=== PATIENT | female | born 1945 | race Hispanic/Latino ===

== ENCOUNTER → 2017-11-12 | Outpatient (CLI) | payer MEDICARE | END | disposition home or self-care (01) | LOC: SHCH 09:23 | PROVIDERS: ATTEND Internal Medicine Cardiovascular Disease | DX: I73.9 Peripheral vascular disease, unspecified (principal) | CPT/HCPCS: 93925 ==

== ENCOUNTER → 2018-11-18 | Outpatient (CLI) | payer MEDICARE | END | disposition home or self-care (01) | LOC: SHCH 10:46 | PROVIDERS: ATTEND Internal Medicine Cardiovascular Disease | DX: I87.2 Venous insufficiency (chronic) (peripheral) (principal); I73.9 Peripheral vascular disease, unspecified | CPT/HCPCS: 93925; 93970 ==

== ENCOUNTER → 2019-05-30 | Outpatient (CLI) | payer MEDICARE ==
[~2019-05-30] VITALS: Ht 142.2 cm; Wt 59.0 kg
[~2019-05-30] MED LIST: REGADENOSON 0.4 MG/5 ML PF SYG IVP SCH
== END | disposition home or self-care (01) ==
LOC: SHCH 08:51
PROVIDERS: ATTEND Internal Medicine Cardiovascular Disease
DX: I25.709 Atherosclerosis of coronary artery bypass graft(s), unspecified, with unspecified angina pectoris (principal); R07.9 Chest pain, unspecified
CPT/HCPCS: 78452; 93017; 96374; A9500 ×2; J2785

== ENCOUNTER → 2019-06-14 | Outpatient (CLI) | payer MEDICARE | END | disposition home or self-care (01) | LOC: SHCH 11:21 | PROVIDERS: ATTEND Internal Medicine Cardiovascular Disease | DX: I65.23 Occlusion and stenosis of bilateral carotid arteries (principal) | CPT/HCPCS: 93880 ==

== ENCOUNTER 2020-10-20 13:48 | Inpatient (IN) | payer MEDICARE ==
[~2020-10-20] VITALS: Ht 142.2 cm; Wt 51.3 kg
[2020-10-20 14:41] LABS: BASOPHILS % (AUTO) 0.5 % (0.0-5.0); HEMATOCRIT 42.2 % (36-48); LYMPHOCYTES % (AUTO) 21.3 % (21.0-51.0); MEAN CORPUSCULAR HEMOGLOBIN 29.5 pg (27.0-33.0); MEAN CORPUSCULAR HGB CONC 33.2 g/dL (32.0-36.0); MEAN CORPUSCULAR VOLUME 88.8 fL (79-99); MONOCYTES % (AUTO) 8.2 % (3.0-13.0); NEUTROPHILS % (AUTO) 68.9 % (40.0-77.0); PLATELET COUNT (AUTO) 193 K/uL (130-400); RED BLOOD CELL COUNT(AUTO) 4.75 MIL/uL (4.00-5.50); RED CELL DISTRIBUTION WIDTH 12.7 % (11.0-15.5); WHITE BLOOD COUNT (AUTO) 7.8 K/uL (4.8-10.8)
[2020-10-20 14:56] LABS: INR 1.03 (0.85-1.15); PROTHROMBIN TIME 11.2 SEC (9.6-11.6)
[2020-10-20 14:58] LABS: PARTIAL THROMBOPLASTIN TIME 26.8 SEC (26.3-35.5)
[2020-10-20 15:04] LABS: CREATININE 1.1 mg/dL (0.5-1.5); POTASSIUM 4.1 mmol/L (3.5-5.1)
[2020-10-20 15:08] LABS: ALBUMIN 4.3 g/dL (3.5-5.0); BILIRUBIN,TOTAL 0.7 mg/dL (0.2-1.0)
[2020-10-20] MEDS ORDERED: ACETAMINOPHEN 325 MG TAB ONE (15:19)
[2020-10-20] MEDS ORDERED: DIAZEPAM 2 MG TAB ONE (16:50)
[2020-10-20 18:45] LABS: APPEARANCE,URINE Clear (CLEAR); BILIRUBIN,URINE Negative (NEGATIVE); COLOR,URINE Yellow (YELLOW); GLUCOSE, URINE (UA) Negative (NEGATIVE); KETONES,URINE 15 mg/dL (NEGATIVE); LEUKOCYTE ESTERASE ,URINE Trace (NEGATIVE); NITRATE,URINE Positive (NEGATIVE); OCCULT BLOOD,URINE Negative (NEGATIVE); PROTEIN,URINE Negative (NEGATIVE); UROBILINOGEN,URINE 0.2 mg/dL (0.2-1.0)
[2020-10-20 19:01] LABS: BACTERIA,URINE Few /HPF (None Seen); RBC,URINE 0-1 /HPF (0-1)
[2020-10-20 19:02] LABS: SQUAMOUS EPITHELIAL CELL,UR Few /HPF (0-2)
[2020-10-20] MEDS ORDERED: ACETAMINOPHEN 325 MG TAB PO PRN ×2 (19:15)
[2020-10-20] MEDS ORDERED: ONDANSETRON 4MG INJ IV PRN (19:15)
[2020-10-20 20:12] LABS: HEMOGLOBIN A1C 7.4 % (4.0-6.0)
[2020-10-20] MEDS: INSULIN HUMULIN R 100 UNIT/ML 3ML SQ SCH (21:00)
[2020-10-20 21:21] LABS: CRP QUANTITATIVE < 2.00 mg/L (0.00-9.0)
[2020-10-20 21:45] VITALS: BP 158/67
[2020-10-20] MEDS: FAMOTIDINE 20MG TAB PO SCH (22:44)
[2020-10-20] MEDS: METOCLOPRAMIDE 5 MG TABLET PO SCH (22:46)
[2020-10-20] MEDS: ATORVASTATIN 20 MG TABLET PO SCH (22:46)
[2020-10-20] MEDS: METOPROLOL TARTRATE 50 MG TAB PO SCH (22:47)
[2020-10-20] MEDS: GABAPENTIN 100 MG CAPSULE PO SCH (22:47)
[2020-10-20] MEDS: CYCLOBENZAPRINE HCL 10 MG TABLET PO SCH (22:49)
[2020-10-20] MEDS: NAPROXEN 500 MG TABLET PO SCH (22:50)
[2020-10-20] MEDS: LIDOCAINE 5% TOPICAL PATCH TP SCH (22:58)
[2020-10-21 00:04] VITALS: BP 158/68
[2020-10-21] MEDS ORDERED: METO5 PO (02:31)
[2020-10-21] MEDS ORDERED: VITA400T9 PO (02:49)
[2020-10-21] MEDS ORDERED: CILO100T PO (02:49)
[2020-10-21] MEDS ORDERED: FLUO10TA3 PO (02:49)
[2020-10-21] MEDS ORDERED: NITR0.4T50 SL (02:49)
[2020-10-21] MEDS ORDERED: ASCO500C18 PO (02:49)
[2020-10-21] MEDS ORDERED: ISOS30TA92 PO (02:49)
[2020-10-21] MEDS ORDERED: CYAN250010 PO (02:49)
[2020-10-21] MEDS ORDERED: LOSA50TA2 PO (02:49)
[2020-10-21] MEDS ORDERED: METO50TA18 PO (02:49)
[2020-10-21] MEDS ORDERED: GABA-529 PO (02:49)
[2020-10-21 03:50] VITALS: BP 143/74
[2020-10-21] MEDS: INSULIN HUMULIN R 100 UNIT/ML 3ML SQ SCH ×4 (06:02→22:09)
[2020-10-21] MEDS: METOCLOPRAMIDE 5 MG TABLET PO SCH ×4 (06:02→21:56)
[2020-10-21 07:00] VITALS: BP 136/53
[2020-10-21] MEDS: GABAPENTIN 100 MG CAPSULE PO SCH ×3 (10:08→21:58)
[2020-10-21] MEDS: FLUOXETINE HCL 10 MG CAPSULE PO SCH (10:08)
[2020-10-21] MEDS: ISOSORBIDE MONO 30MG SR TAB PO SCH (10:08)
[2020-10-21] MEDS: METOPROLOL TARTRATE 50 MG TAB PO SCH ×2 (10:08→21:58)
[2020-10-21] MEDS: LIDOCAINE 5% TOPICAL PATCH TP SCH (10:08)
[2020-10-21] MEDS: NAPROXEN 500 MG TABLET PO SCH ×2 (10:08→21:57)
[2020-10-21] MEDS: FAMOTIDINE 20MG TAB PO SCH ×2 (10:08→21:56)
[2020-10-21] MEDS: LOSARTAN 50 MG TABLET PO SCH (10:08)
[2020-10-21] MEDS: CYCLOBENZAPRINE HCL 10 MG TABLET PO SCH ×3 (10:08→21:57)
[2020-10-21] MEDS ORDERED: GADODIAMIDE 10 MMOL/20 ML VIAL IV ONE (10:30)
[2020-10-21 11:00] VITALS: BP 119/53
[2020-10-21 15:00] VITALS: BP 104/47
[2020-10-21] MEDS: CEFTRIAXONE 1G VIAL IVP SCH (15:41)
[2020-10-21 20:00] VITALS: BP 155/67
[2020-10-21] MEDS: ATORVASTATIN 20 MG TABLET PO SCH (21:58)
[2020-10-22] VITALS (7 sets, daily range): BP systolic 101–139; BP diastolic 48–66
[2020-10-22] MEDS: CEFTRIAXONE 1G VIAL IVP SCH ×2 (04:10→14:28)
[2020-10-22 05:11] LABS: HEMATOCRIT 34.8 % (36-48); MEAN CORPUSCULAR HEMOGLOBIN 29.4 pg (27.0-33.0); MEAN CORPUSCULAR HGB CONC 32.5 g/dL (32.0-36.0); MEAN CORPUSCULAR VOLUME 90.4 fL (79-99); RED BLOOD CELL COUNT(AUTO) 3.85 MIL/uL (4.00-5.50)
[2020-10-22 05:50] LABS: ALBUMIN 3.3 g/dL (3.5-5.0); BILIRUBIN,TOTAL 0.9 mg/dL (0.2-1.0); CREATININE 1.6 mg/dL (0.5-1.5); POTASSIUM 4.2 mmol/L (3.5-5.1); TOTAL PROTEIN, SERUM 6.5 g/dL (6.0-8.3)
[2020-10-22] MEDS: METOCLOPRAMIDE 5 MG TABLET PO SCH ×4 (06:46→22:41)
[2020-10-22] MEDS: INSULIN HUMULIN R 100 UNIT/ML 3ML SQ SCH ×4 (06:47→21:00)
[2020-10-22] MEDS: METOPROLOL TARTRATE 50 MG TAB PO SCH ×3 (09:00→22:44)
[2020-10-22] MEDS: NAPROXEN 500 MG TABLET PO SCH ×2 (10:14→22:42)
[2020-10-22] MEDS: ISOSORBIDE MONO 30MG SR TAB PO SCH (10:14)
[2020-10-22] MEDS: LOSARTAN 50 MG TABLET PO SCH (10:15)
[2020-10-22] MEDS: FLUOXETINE HCL 10 MG CAPSULE PO SCH (10:15)
[2020-10-22] MEDS: GABAPENTIN 100 MG CAPSULE PO SCH ×4 (10:15→22:40)
[2020-10-22] MEDS: CYCLOBENZAPRINE HCL 10 MG TABLET PO SCH ×3 (10:15→22:40)
[2020-10-22] MEDS: FAMOTIDINE 20MG TAB PO SCH ×2 (10:15→22:42)
[2020-10-22] MEDS: LIDOCAINE 5% TOPICAL PATCH TP SCH (10:19)
[2020-10-22] MEDS: ATORVASTATIN 20 MG TABLET PO SCH (22:41)
[2020-10-23] MEDS: CEFTRIAXONE 1G VIAL IVP SCH ×2 (04:05→16:05)
[2020-10-23 04:08] LABS: HEMOGLOBIN A1C 7.4 % (4.0-6.0)
[2020-10-23 04:20] VITALS: BP 138/58
[2020-10-23] MEDS: LOSARTAN 50 MG TABLET PO SCH (08:53)
[2020-10-23] MEDS: ISOSORBIDE MONO 30MG SR TAB PO SCH (08:53)
[2020-10-23] MEDS: METOCLOPRAMIDE 5 MG TABLET PO SCH ×4 (08:53→21:41)
[2020-10-23] MEDS: NAPROXEN 500 MG TABLET PO SCH ×2 (08:56→21:48)
[2020-10-23] MEDS: FLUOXETINE HCL 10 MG CAPSULE PO SCH (08:56)
[2020-10-23] MEDS: GABAPENTIN 100 MG CAPSULE PO SCH ×3 (08:56→21:40)
[2020-10-23] MEDS: FAMOTIDINE 20MG TAB PO SCH ×2 (08:56→21:38)
[2020-10-23] MEDS: LIDOCAINE 5% TOPICAL PATCH TP SCH (08:57)
[2020-10-23] MEDS: CYCLOBENZAPRINE HCL 10 MG TABLET PO SCH ×3 (08:57→21:40)
[2020-10-23 09:09] VITALS: BP 154/65
[2020-10-23] MEDS: INSULIN HUMULIN R 100 UNIT/ML 3ML SQ SCH ×3 (11:30→21:35)
[2020-10-23 12:27] VITALS: BP 140/63
[2020-10-23 16:00] VITALS: BP 113/61
[2020-10-23 20:30] VITALS: BP 141/45
[2020-10-23] MEDS ORDERED: METOPROLOL TARTRATE 50 MG TAB PO SCH (21:00)
[2020-10-23] MEDS: CILOSTAZOL 100 MG TAB PO SCH (21:00)
[2020-10-23] MEDS: ATORVASTATIN 20 MG TABLET PO SCH (21:39)
[2020-10-23] MEDS: METOPROLOL TARTRATE 50 MG TAB PO SCH (21:43)
[2020-10-23 23:40] VITALS: BP 146/62
[2020-10-24] VITALS (9 sets, daily range): BP systolic 107–222; BP diastolic 57–94
[2020-10-24] MEDS: CEFTRIAXONE 1G VIAL IVP SCH ×2 (03:56→16:09)
[2020-10-24] MEDS ORDERED: GLUCAGON 1MG KIT 1 MG ML IM PRN (05:30)
[2020-10-24] MEDS ORDERED: DEXTROSE 50%-WATER 50 ML DISP.SYRIN IV PRN (05:30)
[2020-10-24] MEDS ORDERED: LABETALOL 20MG SYG IV ONE (06:56)
[2020-10-24] MEDS: LABETALOL 20MG SYG IV SCH (07:22)
[2020-10-24] MEDS: INSULIN HUMULIN R 100 UNIT/ML 3ML SQ SCH ×4 (07:30→23:08)
[2020-10-24] MEDS: CILOSTAZOL 100 MG TAB PO SCH ×2 (08:06→23:11)
[2020-10-24] MEDS: LIDOCAINE 5% TOPICAL PATCH TP SCH (08:06)
[2020-10-24] MEDS: METOPROLOL TARTRATE 50 MG TAB PO SCH ×2 (08:06→23:10)
[2020-10-24] MEDS: ASPIRIN 81MG CHEW TAB PO SCH (08:06)
[2020-10-24] MEDS: FLUOXETINE HCL 10 MG CAPSULE PO SCH ×2 (08:07→08:13)
[2020-10-24] MEDS: LOSARTAN 50 MG TABLET PO SCH (08:07)
[2020-10-24] MEDS: CYCLOBENZAPRINE HCL 10 MG TABLET PO SCH (08:07)
[2020-10-24] MEDS: FAMOTIDINE 20MG TAB PO SCH ×2 (08:07→21:00)
[2020-10-24] MEDS: ASCORBIC ACID 500 MG TAB PO SCH ×2 (08:07→23:10)
[2020-10-24] MEDS: METOCLOPRAMIDE 5 MG TABLET PO SCH ×2 (08:07→11:30)
[2020-10-24] MEDS: ISOSORBIDE MONO 30MG SR TAB PO SCH (08:07)
[2020-10-24] MEDS: GABAPENTIN 100 MG CAPSULE PO SCH ×2 (08:08→23:03)
[2020-10-24] MEDS: CYANOCOBALAMIN (VITAMIN B-12) 1,000 MCG TABLET PO SCH (08:08)
[2020-10-24] MEDS: NAPROXEN 500 MG TABLET PO SCH ×2 (09:00→21:00)
[2020-10-24] MEDS ORDERED: ISOSORBIDE MONO 30MG SR TAB PO SCH (09:00)
[2020-10-24] MEDS ORDERED: LOSARTAN 50 MG TABLET PO SCH (09:00)
[2020-10-24] MEDS ORDERED: HALOPERIDOL INJ 5 MG/ML VIAL ONE (10:26)
[2020-10-24] MEDS ORDERED: HALOPERIDOL INJ 5 MG/ML VIAL IM SCH (10:45)
[2020-10-24] MEDS ORDERED: LORAZEPAM 2 MG/ML 1 ML VIAL ONE (11:21)
[2020-10-24] MEDS ORDERED: CYCLOBENZAPRINE HCL 10 MG TABLET PO PRN (12:15)
[2020-10-24] MEDS: OLANZAPINE ODT 5 MG TAB SL SCH (23:03)
[2020-10-24] MEDS: ATORVASTATIN 20 MG TABLET PO SCH (23:10)
[2020-10-25] MEDS: CEFTRIAXONE 1G VIAL IVP SCH ×2 (03:09→15:59)
[2020-10-25 04:00] VITALS: BP 134/60
[2020-10-25 04:43] LABS: HEMATOCRIT 34.7 % (36-48); MEAN CORPUSCULAR HEMOGLOBIN 29.3 pg (27.0-33.0); MEAN CORPUSCULAR HGB CONC 32.3 g/dL (32.0-36.0); MEAN CORPUSCULAR VOLUME 90.8 fL (79-99); RED BLOOD CELL COUNT(AUTO) 3.82 MIL/uL (4.00-5.50); RED CELL DISTRIBUTION WIDTH 12.9 % (11.0-15.5); WHITE BLOOD COUNT (AUTO) 6.7 K/uL (4.8-10.8)
[2020-10-25 04:58] LABS: ALBUMIN 3.4 g/dL (3.5-5.0); BILIRUBIN,TOTAL 0.3 mg/dL (0.2-1.0); CREATININE 1.5 mg/dL (0.5-1.5); POTASSIUM 4.5 mmol/L (3.5-5.1); TOTAL PROTEIN, SERUM 6.9 g/dL (6.0-8.3)
[2020-10-25 05:08] LABS: INR 1.03 (0.85-1.15); PROTHROMBIN TIME 11.2 SEC (9.6-11.6)
[2020-10-25 05:09] LABS: PARTIAL THROMBOPLASTIN TIME 24.2 SEC (26.3-35.5)
[2020-10-25] MEDS: INSULIN HUMULIN R 100 UNIT/ML 3ML SQ SCH ×4 (06:28→20:49)
[2020-10-25] MEDS: LABETALOL 20MG SYG IV SCH ×2 (06:30→20:50)
[2020-10-25] MEDS: FLUOXETINE HCL 10 MG CAPSULE PO SCH ×2 (09:00→09:08)
[2020-10-25] MEDS: CILOSTAZOL 100 MG TAB PO SCH ×2 (09:07→20:44)
[2020-10-25] MEDS: CYANOCOBALAMIN (VITAMIN B-12) 1,000 MCG TABLET PO SCH (09:07)
[2020-10-25] MEDS: ISOSORBIDE MONO 30MG SR TAB PO SCH (09:07)
[2020-10-25] MEDS: LOSARTAN 50 MG TABLET PO SCH (09:07)
[2020-10-25] MEDS: FAMOTIDINE 20MG TAB PO SCH ×2 (09:07→20:43)
[2020-10-25] MEDS: METOPROLOL TARTRATE 50 MG TAB PO SCH ×2 (09:07→20:43)
[2020-10-25] MEDS: NAPROXEN 500 MG TABLET PO SCH ×2 (09:07→20:43)
[2020-10-25] MEDS: ASPIRIN 81MG CHEW TAB PO SCH (09:07)
[2020-10-25] MEDS: ASCORBIC ACID 500 MG TAB PO SCH ×2 (09:08→20:43)
[2020-10-25] MEDS: LIDOCAINE 5% TOPICAL PATCH TP SCH (09:08)
[2020-10-25] MEDS: GABAPENTIN 100 MG CAPSULE PO SCH ×2 (09:08→20:44)
[2020-10-25 09:10] VITALS: BP 143/73
[2020-10-25 16:23] VITALS: BP 126/57
[2020-10-25 20:00] VITALS: BP 148/52
[2020-10-25] MEDS: ATORVASTATIN 20 MG TABLET PO SCH (20:43)
[2020-10-26] VITALS: BP 163/83
[2020-10-26] MEDS: CEFTRIAXONE 1G VIAL IVP SCH ×2 (03:51→14:57)
[2020-10-26 04:31] VITALS: BP 151/69
[2020-10-26] MEDS: INSULIN HUMULIN R 100 UNIT/ML 3ML SQ SCH ×4 (06:28→20:22)
[2020-10-26] MEDS: LOSARTAN 50 MG TABLET PO SCH (08:27)
[2020-10-26] MEDS: METOPROLOL TARTRATE 50 MG TAB PO SCH ×2 (08:27→20:20)
[2020-10-26] MEDS: LIDOCAINE 5% TOPICAL PATCH TP SCH (08:27)
[2020-10-26] MEDS: ISOSORBIDE MONO 30MG SR TAB PO SCH (08:28)
[2020-10-26] MEDS: CILOSTAZOL 100 MG TAB PO SCH ×2 (09:00→20:19)
[2020-10-26] MEDS: CYANOCOBALAMIN (VITAMIN B-12) 1,000 MCG TABLET PO SCH (09:00)
[2020-10-26] MEDS: GABAPENTIN 100 MG CAPSULE PO SCH ×2 (09:00→20:20)
[2020-10-26] MEDS: ASPIRIN 81MG CHEW TAB PO SCH (09:00)
[2020-10-26] MEDS: ASCORBIC ACID 500 MG TAB PO SCH ×2 (09:00→20:19)
[2020-10-26] MEDS: FAMOTIDINE 20MG TAB PO SCH ×2 (09:00→20:20)
[2020-10-26] MEDS: FLUOXETINE HCL 10 MG CAPSULE PO SCH ×2 (09:00)
[2020-10-26] MEDS: NAPROXEN 500 MG TABLET PO SCH ×2 (09:00→20:20)
[2020-10-26 19:00] VITALS: BP 144/72
[2020-10-26] MEDS: OLANZAPINE ODT 5 MG TAB SL SCH (20:20)
[2020-10-26] MEDS: ATORVASTATIN 20 MG TABLET PO SCH (20:20)
[2020-10-26] MEDS: LABETALOL 20MG SYG IV SCH (21:47)
[2020-10-26] MEDS ORDERED: LORAZEPAM 2 MG/ML 1 ML VIAL IVP ONE (22:45)
[2020-10-26] MEDS ORDERED: LORAZEPAM 2 MG/ML 1 ML VIAL ONE (22:48)
[2020-10-27] VITALS (25 sets, daily range): BP systolic 87–157; BP diastolic 38–77
[2020-10-27] MEDS: CEFTRIAXONE 1G VIAL IVP SCH ×2 (03:37→15:35)
[2020-10-27] MEDS: INSULIN HUMULIN R 100 UNIT/ML 3ML SQ SCH ×4 (07:30→20:38)
[2020-10-27] MEDS: ISOSORBIDE MONO 30MG SR TAB PO SCH (08:43)
[2020-10-27] MEDS: LOSARTAN 50 MG TABLET PO SCH (08:43)
[2020-10-27] MEDS: ASPIRIN 81MG CHEW TAB PO SCH (08:43)
[2020-10-27] MEDS: NAPROXEN 500 MG TABLET PO SCH ×2 (08:44→20:22)
[2020-10-27] MEDS: GABAPENTIN 100 MG CAPSULE PO SCH ×2 (08:44→20:22)
[2020-10-27] MEDS: CILOSTAZOL 100 MG TAB PO SCH ×2 (08:44→20:21)
[2020-10-27] MEDS: FAMOTIDINE 20MG TAB PO SCH ×2 (08:44→20:21)
[2020-10-27] MEDS: FLUOXETINE HCL 10 MG CAPSULE PO SCH ×2 (08:45)
[2020-10-27] MEDS: ASCORBIC ACID 500 MG TAB PO SCH ×2 (08:45→20:22)
[2020-10-27] MEDS: CYANOCOBALAMIN (VITAMIN B-12) 1,000 MCG TABLET PO SCH (08:45)
[2020-10-27] MEDS: LIDOCAINE 5% TOPICAL PATCH TP SCH (09:00)
[2020-10-27] MEDS: METOPROLOL TARTRATE 50 MG TAB PO SCH ×2 (09:00→20:22)
[2020-10-27] MEDS ORDERED: LIDOCAINE PF 100MG/5ML (2%) SYRINGE 5ML ONE (12:09)
[2020-10-27] MEDS ORDERED: ROCURONIUM 10MG/1ML SYR 10 MG/ML ML ONE (12:12)
[2020-10-27] MEDS ORDERED: PROPOFOL 10 MG/ML 20ML VIAL IV ONE (12:12)
[2020-10-27] MEDS ORDERED: ONDANSETRON 4MG INJ ONE (12:12)
[2020-10-27] MEDS ORDERED: FENTANYL CITRATE PF 50 MCG/1 ML 2ML VIAL ONE (12:13)
[2020-10-27] MEDS ORDERED: CEFAZOLIN SODIUM 1 GM VIAL ONE (12:20)
[2020-10-27] MEDS ORDERED: EPHEDRINE SULFATE 50 MG/ML AMPULE ONE (12:30)
[2020-10-27] MEDS ORDERED: NEOSTIGMINE 5MG/5ML SYR IV ONE (13:57)
[2020-10-27] MEDS ORDERED: GLYCOPYRROLATE 1 MG/5 ML SYRINGE ONE (13:57)
[2020-10-27] MEDS ORDERED: DEXAMETHASONE SOD PHOSPHATE 10MG/ML 1ML VIAL ONE (14:01)
[2020-10-27] MEDS ORDERED: LIDOCAINE HCL-MPF 1% 5ML AMP IJ ONE (14:02)
[2020-10-27] MEDS ORDERED: CEFAZOLIN SODIUM 1 GM VIAL IVP SCH (14:30)
[2020-10-27] MEDS: ATORVASTATIN 20 MG TABLET PO SCH (20:22)
[2020-10-28] MEDS ORDERED: 0.9%NACL 10ML VIAL ONE (03:53)
[2020-10-28] MEDS: CEFTRIAXONE 1G VIAL IVP SCH ×2 (03:54→15:34)
[2020-10-28 04:00] VITALS: BP 168/73
[2020-10-28 04:09] LABS: BASOPHILS % (AUTO) 0.3 % (0.0-5.0); EOSINOPHILS % (AUTO) 0.1 % (0.0-8.0); HEMATOCRIT 36.9 % (36-48); LYMPHOCYTES % (AUTO) 8.5 % (21.0-51.0); MEAN CORPUSCULAR HEMOGLOBIN 29.6 pg (27.0-33.0); MEAN CORPUSCULAR HGB CONC 33.3 g/dL (32.0-36.0); MEAN CORPUSCULAR VOLUME 88.9 fL (79-99); MONOCYTES % (AUTO) 10.8 % (3.0-13.0); NEUTROPHILS % (AUTO) 79.7 % (40.0-77.0); PLATELET COUNT (AUTO) 163 K/uL (130-400); RED BLOOD CELL COUNT(AUTO) 4.15 MIL/uL (4.00-5.50); RED CELL DISTRIBUTION WIDTH 12.8 % (11.0-15.5); WHITE BLOOD COUNT (AUTO) 9.1 K/uL (4.8-10.8)
[2020-10-28 04:26] LABS: ALBUMIN 3.4 g/dL (3.5-5.0); BILIRUBIN,TOTAL 0.6 mg/dL (0.2-1.0); CREATININE 1.1 mg/dL (0.5-1.5); POTASSIUM 4.6 mmol/L (3.5-5.1)
[2020-10-28] MEDS: INSULIN HUMULIN R 100 UNIT/ML 3ML SQ SCH ×4 (06:15→21:21)
[2020-10-28] MEDS: LABETALOL 20MG SYG IV SCH (06:19)
[2020-10-28] MEDS: FLUOXETINE HCL 10 MG CAPSULE PO SCH ×2 (09:00→10:06)
[2020-10-28] MEDS: NAPROXEN 500 MG TABLET PO SCH ×2 (10:05→21:07)
[2020-10-28] MEDS: METOPROLOL TARTRATE 50 MG TAB PO SCH ×2 (10:05→21:08)
[2020-10-28] MEDS: ASPIRIN 81MG CHEW TAB PO SCH (10:05)
[2020-10-28] MEDS: FAMOTIDINE 20MG TAB PO SCH ×2 (10:05→21:07)
[2020-10-28] MEDS: ASCORBIC ACID 500 MG TAB PO SCH ×2 (10:06→21:07)
[2020-10-28] MEDS: GABAPENTIN 100 MG CAPSULE PO SCH ×2 (10:06→21:07)
[2020-10-28] MEDS: CILOSTAZOL 100 MG TAB PO SCH ×2 (10:06→21:07)
[2020-10-28] MEDS: LOSARTAN 50 MG TABLET PO SCH (10:06)
[2020-10-28] MEDS: LIDOCAINE 5% TOPICAL PATCH TP SCH (10:07)
[2020-10-28] MEDS: CYANOCOBALAMIN (VITAMIN B-12) 1,000 MCG TABLET PO SCH (10:07)
[2020-10-28] MEDS: ISOSORBIDE MONO 30MG SR TAB PO SCH (10:07)
[2020-10-28 20:00] VITALS: BP_SYST 100; BP_SYST 109; BP_DIAS 44; BP_DIAS 52
[2020-10-28] MEDS: ATORVASTATIN 20 MG TABLET PO SCH (21:07)
[2020-10-29] VITALS: BP 135/76
[2020-10-29] MEDS ORDERED: 0.9%NACL 10ML VIAL ONE (03:28)
[2020-10-29] MEDS: CEFTRIAXONE 1G VIAL IVP SCH ×2 (03:30→17:26)
[2020-10-29 04:13] LABS: BASOPHILS % (AUTO) 0.5 % (0.0-5.0); EOSINOPHILS % (AUTO) 2.3 % (0.0-8.0); HEMATOCRIT 34.8 % (36-48); LYMPHOCYTES % (AUTO) 18.5 % (21.0-51.0); MEAN CORPUSCULAR HEMOGLOBIN 28.9 pg (27.0-33.0); MEAN CORPUSCULAR HGB CONC 31.6 g/dL (32.0-36.0); MEAN CORPUSCULAR VOLUME 91.6 fL (79-99); MONOCYTES % (AUTO) 13.4 % (3.0-13.0); PLATELET COUNT (AUTO) 174 K/uL (130-400); RED CELL DISTRIBUTION WIDTH 13.1 % (11.0-15.5); WHITE BLOOD COUNT (AUTO) 7.5 K/uL (4.8-10.8)
[2020-10-29 04:38] LABS: BILIRUBIN,TOTAL 0.5 mg/dL (0.2-1.0); CREATININE 1.2 mg/dL (0.5-1.5); POTASSIUM 3.8 mmol/L (3.5-5.1); TOTAL PROTEIN, SERUM 6.6 g/dL (6.0-8.3)
[2020-10-29 04:39] VITALS: BP 156/58
[2020-10-29] MEDS: LABETALOL 20MG SYG IV SCH (05:59)
[2020-10-29] MEDS: INSULIN HUMULIN R 100 UNIT/ML 3ML SQ SCH ×4 (06:17→21:00)
[2020-10-29 08:00] VITALS: BP 162/61
[2020-10-29] MEDS: FLUOXETINE HCL 10 MG CAPSULE PO SCH ×2 (09:00→09:32)
[2020-10-29] MEDS: NAPROXEN 500 MG TABLET PO SCH ×2 (09:29→22:08)
[2020-10-29] MEDS: ISOSORBIDE MONO 30MG SR TAB PO SCH (09:29)
[2020-10-29] MEDS: METOPROLOL TARTRATE 50 MG TAB PO SCH ×2 (09:29→22:09)
[2020-10-29] MEDS: CYANOCOBALAMIN (VITAMIN B-12) 1,000 MCG TABLET PO SCH (09:29)
[2020-10-29] MEDS: ASPIRIN 81MG CHEW TAB PO SCH (09:29)
[2020-10-29] MEDS: LOSARTAN 50 MG TABLET PO SCH (09:29)
[2020-10-29] MEDS ORDERED: KCL 20 MEQ ERTAB PO PRN (09:30)
[2020-10-29] MEDS ORDERED: LIDOCAINE HCL-MPF 1% 2ML VIAL IV PRN (09:30)
[2020-10-29] MEDS: GABAPENTIN 100 MG CAPSULE PO SCH ×2 (09:30→22:09)
[2020-10-29] MEDS ORDERED: POTASSIUM CHLORIDE 20MEQ/100ML 100 ML IV PRN (09:30)
[2020-10-29] MEDS ORDERED: POTASSIUM CHLORIDE 10% ELIXIR 20 MEQ/15 ML UDCUP PO PRN (09:30)
[2020-10-29] MEDS: CILOSTAZOL 100 MG TAB PO SCH ×2 (09:32→22:08)
[2020-10-29] MEDS: ASCORBIC ACID 500 MG TAB PO SCH ×2 (09:32→22:09)
[2020-10-29] MEDS: FAMOTIDINE 20MG TAB PO SCH ×2 (09:32→22:09)
[2020-10-29] MEDS: LIDOCAINE 5% TOPICAL PATCH TP SCH (09:32)
[2020-10-29] MEDS ORDERED: KCL 20 MEQ ERTAB PO ONE (09:34)
[2020-10-29 12:00] VITALS: BP 148/72
[2020-10-29 16:00] VITALS: BP 161/72
[2020-10-29 19:39] VITALS: BP 164/75
[2020-10-29] MEDS: ATORVASTATIN 20 MG TABLET PO SCH (22:08)
[2020-10-29] MEDS: OLANZAPINE 5 MG TAB PO SCH (22:08)
[2020-10-30] VITALS (7 sets, daily range): BP systolic 99–164; BP diastolic 40–70
[2020-10-30] MEDS ORDERED: 0.9%NACL 10ML VIAL ONE (03:50)
[2020-10-30] MEDS: CEFTRIAXONE 1G VIAL IVP SCH ×2 (03:54→12:24)
[2020-10-30 05:57] LABS: BASOPHILS % (AUTO) 0.5 % (0.0-5.0); EOSINOPHILS % (AUTO) 2.3 % (0.0-8.0); HEMATOCRIT 34.9 % (36-48); LYMPHOCYTES % (AUTO) 18.4 % (21.0-51.0); MEAN CORPUSCULAR HEMOGLOBIN 29.4 pg (27.0-33.0); MEAN CORPUSCULAR HGB CONC 32.1 g/dL (32.0-36.0); MEAN CORPUSCULAR VOLUME 91.6 fL (79-99); MONOCYTES % (AUTO) 11.4 % (3.0-13.0); NEUTROPHILS % (AUTO) 67.1 % (40.0-77.0); PLATELET COUNT (AUTO) 188 K/uL (130-400); RED BLOOD CELL COUNT(AUTO) 3.81 MIL/uL (4.00-5.50); WHITE BLOOD COUNT (AUTO) 6.6 K/uL (4.8-10.8)
[2020-10-30 06:09] LABS: ALBUMIN 2.9 g/dL (3.5-5.0); BILIRUBIN,TOTAL 0.6 mg/dL (0.2-1.0); CREATININE 1.8 mg/dL (0.5-1.5); TOTAL PROTEIN, SERUM 6.4 g/dL (6.0-8.3)
[2020-10-30] MEDS: INSULIN HUMULIN R 100 UNIT/ML 3ML SQ SCH ×4 (06:19→20:06)
[2020-10-30] MEDS: LABETALOL 20MG SYG IV SCH (07:00)
[2020-10-30] MEDS: FLUOXETINE HCL 10 MG CAPSULE PO SCH ×2 (09:00→09:31)
[2020-10-30] MEDS: LOSARTAN 50 MG TABLET PO SCH (09:00)
[2020-10-30] MEDS: FAMOTIDINE 20MG TAB PO SCH ×2 (09:25→21:04)
[2020-10-30] MEDS: GABAPENTIN 100 MG CAPSULE PO SCH ×2 (09:25→21:01)
[2020-10-30] MEDS: LIDOCAINE 5% TOPICAL PATCH TP SCH (09:25)
[2020-10-30] MEDS: OLANZAPINE 5 MG TAB PO SCH ×3 (09:25→21:01)
[2020-10-30] MEDS: ISOSORBIDE MONO 30MG SR TAB PO SCH (09:25)
[2020-10-30] MEDS: METOPROLOL TARTRATE 50 MG TAB PO SCH ×2 (09:31→21:04)
[2020-10-30] MEDS: ASPIRIN 81MG CHEW TAB PO SCH (09:31)
[2020-10-30] MEDS: CYANOCOBALAMIN (VITAMIN B-12) 1,000 MCG TABLET PO SCH (09:31)
[2020-10-30] MEDS: CILOSTAZOL 100 MG TAB PO SCH ×2 (09:31→21:04)
[2020-10-30] MEDS: NAPROXEN 500 MG TABLET PO SCH ×2 (09:32→21:10)
[2020-10-30] MEDS: ASCORBIC ACID 500 MG TAB PO SCH ×2 (09:32→21:05)
[2020-10-30] MEDS: ATORVASTATIN 20 MG TABLET PO SCH (21:03)
[2020-10-31] VITALS (7 sets, daily range): BP systolic 94–161; BP diastolic 47–68
[2020-10-31] MEDS: CEFTRIAXONE 1G VIAL IVP SCH ×2 (02:52→15:20)
[2020-10-31 04:02] LABS: BASOPHILS % (AUTO) 0.4 % (0.0-5.0); EOSINOPHILS % (AUTO) 2.7 % (0.0-8.0); HEMATOCRIT 32.1 % (36-48); LYMPHOCYTES % (AUTO) 20.8 % (21.0-51.0); MEAN CORPUSCULAR HEMOGLOBIN 29.5 pg (27.0-33.0); MEAN CORPUSCULAR HGB CONC 32.7 g/dL (32.0-36.0); MEAN CORPUSCULAR VOLUME 90.2 fL (79-99); MONOCYTES % (AUTO) 7.6 % (3.0-13.0); NEUTROPHILS % (AUTO) 68.3 % (40.0-77.0); PLATELET COUNT (AUTO) 197 K/uL (130-400); RED BLOOD CELL COUNT(AUTO) 3.56 MIL/uL (4.00-5.50); WHITE BLOOD COUNT (AUTO) 8.5 K/uL (4.8-10.8)
[2020-10-31 04:21] LABS: ALBUMIN 2.7 g/dL (3.5-5.0); BILIRUBIN,TOTAL 0.6 mg/dL (0.2-1.0); CREATININE 2.1 mg/dL (0.5-1.5); POTASSIUM 4.4 mmol/L (3.5-5.1); TOTAL PROTEIN, SERUM 6.1 g/dL (6.0-8.3)
[2020-10-31] MEDS: LABETALOL 20MG SYG IV SCH (05:59)
[2020-10-31] MEDS: INSULIN HUMULIN R 100 UNIT/ML 3ML SQ SCH ×4 (06:07→21:00)
[2020-10-31] MEDS: LIDOCAINE 5% TOPICAL PATCH TP SCH (09:00)
[2020-10-31] MEDS: FLUOXETINE HCL 10 MG CAPSULE PO SCH ×2 (09:44→09:52)
[2020-10-31] MEDS: METOPROLOL TARTRATE 50 MG TAB PO SCH ×2 (09:44→20:31)
[2020-10-31] MEDS: ASPIRIN 81MG CHEW TAB PO SCH (09:44)
[2020-10-31] MEDS: OLANZAPINE 5 MG TAB PO SCH ×3 (09:45→20:33)
[2020-10-31] MEDS: LOSARTAN 50 MG TABLET PO SCH (09:45)
[2020-10-31] MEDS: NAPROXEN 500 MG TABLET PO SCH ×2 (09:46→20:31)
[2020-10-31] MEDS: FAMOTIDINE 20MG TAB PO SCH ×2 (09:46→21:10)
[2020-10-31] MEDS: ASCORBIC ACID 500 MG TAB PO SCH ×2 (10:01→21:00)
[2020-10-31] MEDS: CILOSTAZOL 100 MG TAB PO SCH ×2 (10:02→21:10)
[2020-10-31] MEDS: ISOSORBIDE MONO 30MG SR TAB PO SCH (10:02)
[2020-10-31] MEDS: GABAPENTIN 100 MG CAPSULE PO SCH ×2 (10:02→21:10)
[2020-10-31] MEDS: CYANOCOBALAMIN (VITAMIN B-12) 1,000 MCG TABLET PO SCH (10:02)
[2020-10-31] MEDS: ATORVASTATIN 20 MG TABLET PO SCH (21:10)
[2020-11-01] MEDS: CEFTRIAXONE 1G VIAL IVP SCH ×2 (03:15→15:15)
[2020-11-01 05:15] LABS: BASOPHILS % (AUTO) 0.4 % (0.0-5.0); EOSINOPHILS % (AUTO) 3.2 % (0.0-8.0); HEMATOCRIT 34.5 % (36-48); LYMPHOCYTES % (AUTO) 16.6 % (21.0-51.0); MEAN CORPUSCULAR HEMOGLOBIN 30.1 pg (27.0-33.0); MEAN CORPUSCULAR HGB CONC 33.9 g/dL (32.0-36.0); MEAN CORPUSCULAR VOLUME 88.7 fL (79-99); MONOCYTES % (AUTO) 8.6 % (3.0-13.0); NEUTROPHILS % (AUTO) 70.9 % (40.0-77.0); PLATELET COUNT (AUTO) 214 K/uL (130-400); RED BLOOD CELL COUNT(AUTO) 3.89 MIL/uL (4.00-5.50); WHITE BLOOD COUNT (AUTO) 7.2 K/uL (4.8-10.8)
[2020-11-01 05:32] VITALS: BP 160/81
[2020-11-01 05:38] LABS: ALBUMIN 2.9 g/dL (3.5-5.0); BILIRUBIN,TOTAL 0.6 mg/dL (0.2-1.0); CREATININE 1.3 mg/dL (0.5-1.5); POTASSIUM 4.5 mmol/L (3.5-5.1); TOTAL PROTEIN, SERUM 6.7 g/dL (6.0-8.3)
[2020-11-01 08:00] VITALS: BP 148/70
[2020-11-01] MEDS: FLUOXETINE HCL 10 MG CAPSULE PO SCH ×2 (09:00→09:16)
[2020-11-01] MEDS: CYANOCOBALAMIN (VITAMIN B-12) 1,000 MCG TABLET PO SCH (09:14)
[2020-11-01] MEDS: ASCORBIC ACID 500 MG TAB PO SCH ×2 (09:14→20:52)
[2020-11-01] MEDS: ASPIRIN 81MG CHEW TAB PO SCH (09:14)
[2020-11-01] MEDS: METOPROLOL TARTRATE 50 MG TAB PO SCH ×2 (09:15→20:53)
[2020-11-01] MEDS: FAMOTIDINE 20MG TAB PO SCH ×2 (09:15→20:51)
[2020-11-01] MEDS: NAPROXEN 500 MG TABLET PO SCH ×2 (09:16→20:53)
[2020-11-01] MEDS: LOSARTAN 50 MG TABLET PO SCH (09:16)
[2020-11-01] MEDS: GABAPENTIN 100 MG CAPSULE PO SCH ×2 (09:16→20:52)
[2020-11-01] MEDS: ISOSORBIDE MONO 30MG SR TAB PO SCH (09:16)
[2020-11-01] MEDS: CILOSTAZOL 100 MG TAB PO SCH ×2 (09:16→20:51)
[2020-11-01] MEDS: LIDOCAINE 5% TOPICAL PATCH TP SCH (09:17)
[2020-11-01 11:28] VITALS: BP 123/58
[2020-11-01] MEDS: INSULIN HUMULIN R 100 UNIT/ML 3ML SQ SCH ×4 (11:45→20:43)
[2020-11-01 16:00] VITALS: BP 124/49
[2020-11-01] MEDS: LABETALOL 20MG SYG IV SCH (20:37)
[2020-11-01 20:50] VITALS: BP 132/60
[2020-11-01] MEDS: ATORVASTATIN 20 MG TABLET PO SCH (20:52)
[2020-11-01] MEDS: PAROXETINE HCL 20 MG TABLET PO SCH (20:52)
[2020-11-01] MEDS: OLANZAPINE 5 MG TAB PO SCH (20:53)
[2020-11-02] VITALS: BP 105/59
[2020-11-02] MEDS: CEFTRIAXONE 1G VIAL IVP SCH ×2 (03:46→15:01)
[2020-11-02 04:59] LABS: BASOPHILS % (AUTO) 0.4 % (0.0-5.0); HEMATOCRIT 36.4 % (36-48); LYMPHOCYTES % (AUTO) 14.9 % (21.0-51.0); MEAN CORPUSCULAR HEMOGLOBIN 28.8 pg (27.0-33.0); MEAN CORPUSCULAR HGB CONC 32.1 g/dL (32.0-36.0); MEAN CORPUSCULAR VOLUME 89.7 fL (79-99); MONOCYTES % (AUTO) 9.5 % (3.0-13.0); NEUTROPHILS % (AUTO) 73.8 % (40.0-77.0); PLATELET COUNT (AUTO) 261 K/uL (130-400); RED BLOOD CELL COUNT(AUTO) 4.06 MIL/uL (4.00-5.50)
[2020-11-02 05:05] VITALS: BP 163/70
[2020-11-02 05:16] LABS: ALBUMIN 3.2 g/dL (3.5-5.0); BILIRUBIN,TOTAL 0.6 mg/dL (0.2-1.0); CREATININE 1.5 mg/dL (0.5-1.5); POTASSIUM 4.5 mmol/L (3.5-5.1); TOTAL PROTEIN, SERUM 7.2 g/dL (6.0-8.3)
[2020-11-02] MEDS: LABETALOL 20MG SYG IV SCH (07:00)
[2020-11-02] MEDS: INSULIN HUMULIN R 100 UNIT/ML 3ML SQ SCH ×4 (08:42→21:00)
[2020-11-02 08:45] VITALS: BP 99/52
[2020-11-02] MEDS: ASPIRIN 81MG CHEW TAB PO SCH (08:56)
[2020-11-02] MEDS: LOSARTAN 50 MG TABLET PO SCH (08:56)
[2020-11-02] MEDS: ISOSORBIDE MONO 30MG SR TAB PO SCH (08:56)
[2020-11-02] MEDS: LIDOCAINE 5% TOPICAL PATCH TP SCH (08:57)
[2020-11-02] MEDS: NAPROXEN 500 MG TABLET PO SCH ×2 (08:57→21:00)
[2020-11-02] MEDS: CILOSTAZOL 100 MG TAB PO SCH ×2 (08:57→21:00)
[2020-11-02] MEDS: GABAPENTIN 100 MG CAPSULE PO SCH ×2 (08:57→22:30)
[2020-11-02] MEDS: FAMOTIDINE 20MG TAB PO SCH ×2 (08:57→22:30)
[2020-11-02] MEDS: ASCORBIC ACID 500 MG TAB PO SCH ×2 (08:57→21:00)
[2020-11-02] MEDS: CYANOCOBALAMIN (VITAMIN B-12) 1,000 MCG TABLET PO SCH (08:57)
[2020-11-02] MEDS: FLUOXETINE HCL 10 MG CAPSULE PO SCH (08:57)
[2020-11-02] MEDS: PAROXETINE HCL 20 MG TABLET PO SCH ×2 (08:57→21:00)
[2020-11-02] MEDS: METOPROLOL TARTRATE 50 MG TAB PO SCH ×2 (08:58→22:27)
[2020-11-02 12:00] VITALS: BP 126/47
[2020-11-02 16:00] VITALS: BP 107/46
[2020-11-02 19:19] VITALS: BP 132/57
[2020-11-02] MEDS: OLANZAPINE 5 MG TAB PO SCH (21:00)
[2020-11-02] MEDS: ATORVASTATIN 20 MG TABLET PO SCH (21:00)
[2020-11-03] VITALS: BP 142/64
[2020-11-03] MEDS: CEFTRIAXONE 1G VIAL IVP SCH ×2 (04:27→13:49)
[2020-11-03 04:54] VITALS: BP 125/53
[2020-11-03 05:51] LABS: BASOPHILS % (AUTO) 0.3 % (0.0-5.0); EOSINOPHILS % (AUTO) 1.1 % (0.0-8.0); HEMATOCRIT 37.4 % (36-48); LYMPHOCYTES % (AUTO) 13.1 % (21.0-51.0); MEAN CORPUSCULAR HEMOGLOBIN 29.3 pg (27.0-33.0); MEAN CORPUSCULAR HGB CONC 31.8 g/dL (32.0-36.0); MEAN CORPUSCULAR VOLUME 92.1 fL (79-99); MONOCYTES % (AUTO) 8.9 % (3.0-13.0); NEUTROPHILS % (AUTO) 76.1 % (40.0-77.0); PLATELET COUNT (AUTO) 248 K/uL (130-400); RED BLOOD CELL COUNT(AUTO) 4.06 MIL/uL (4.00-5.50); RED CELL DISTRIBUTION WIDTH 13.2 % (11.0-15.5); WHITE BLOOD COUNT (AUTO) 8.9 K/uL (4.8-10.8)
[2020-11-03 06:12] LABS: BILIRUBIN,TOTAL 0.5 mg/dL (0.2-1.0); CREATININE 2.1 mg/dL (0.5-1.5); POTASSIUM 4.8 mmol/L (3.5-5.1)
[2020-11-03 08:00] VITALS: BP 132/64
[2020-11-03] MEDS: CILOSTAZOL 100 MG TAB PO SCH ×2 (09:23→21:00)
[2020-11-03] MEDS: LIDOCAINE 5% TOPICAL PATCH TP SCH (09:23)
[2020-11-03] MEDS: ASCORBIC ACID 500 MG TAB PO SCH ×2 (09:23→21:00)
[2020-11-03] MEDS: NAPROXEN 500 MG TABLET PO SCH ×2 (09:23→21:00)
[2020-11-03] MEDS: PAROXETINE HCL 20 MG TABLET PO SCH ×2 (09:23→21:00)
[2020-11-03] MEDS: GABAPENTIN 100 MG CAPSULE PO SCH ×2 (09:23→21:00)
[2020-11-03] MEDS: ISOSORBIDE MONO 30MG SR TAB PO SCH (09:24)
[2020-11-03] MEDS: ASPIRIN 81MG CHEW TAB PO SCH (09:24)
[2020-11-03] MEDS: FAMOTIDINE 20MG TAB PO SCH ×2 (09:24→21:00)
[2020-11-03] MEDS: LOSARTAN 50 MG TABLET PO SCH (09:24)
[2020-11-03] MEDS: CYANOCOBALAMIN (VITAMIN B-12) 1,000 MCG TABLET PO SCH (09:25)
[2020-11-03] MEDS: METOPROLOL TARTRATE 50 MG TAB PO SCH ×2 (09:26→21:00)
[2020-11-03] MEDS: INSULIN HUMULIN R 100 UNIT/ML 3ML SQ SCH ×4 (09:28→21:00)
[2020-11-03] MEDS: FLUOXETINE HCL 10 MG CAPSULE PO SCH (09:33)
[2020-11-03 12:00] VITALS: BP 139/67
[2020-11-03 16:28] VITALS: BP 141/54
[2020-11-03 21:00] VITALS: BP 119/59
[2020-11-03] MEDS: ATORVASTATIN 20 MG TABLET PO SCH (21:00)
[2020-11-03] MEDS: OLANZAPINE 5 MG TAB PO SCH (21:00)
[2020-11-03] MEDS: LABETALOL 20MG SYG IV SCH (23:09)
[2020-11-04] MEDS: CEFTRIAXONE 1G VIAL IVP SCH (03:58)
[2020-11-04 04:03] VITALS: BP 119/73
[2020-11-04 05:14] LABS: BASOPHILS % (AUTO) 0.6 % (0.0-5.0); EOSINOPHILS % (AUTO) 2.5 % (0.0-8.0); HEMATOCRIT 36.6 % (36-48); LYMPHOCYTES % (AUTO) 18.3 % (21.0-51.0); MEAN CORPUSCULAR HGB CONC 31.7 g/dL (32.0-36.0); MEAN CORPUSCULAR VOLUME 91.5 fL (79-99); MONOCYTES % (AUTO) 8.3 % (3.0-13.0); PLATELET COUNT (AUTO) 231 K/uL (130-400); RED CELL DISTRIBUTION WIDTH 13.2 % (11.0-15.5); WHITE BLOOD COUNT (AUTO) 8.7 K/uL (4.8-10.8)
[2020-11-04 05:28] LABS: ALBUMIN 3.1 g/dL (3.5-5.0); BILIRUBIN,TOTAL 0.6 mg/dL (0.2-1.0); CREATININE 1.6 mg/dL (0.5-1.5); POTASSIUM 4.3 mmol/L (3.5-5.1); TOTAL PROTEIN, SERUM 6.9 g/dL (6.0-8.3)
[2020-11-04] MEDS: ASPIRIN 81MG CHEW TAB PO SCH (07:53)
[2020-11-04] MEDS: GABAPENTIN 100 MG CAPSULE PO SCH ×2 (07:54→21:00)
[2020-11-04] MEDS: NAPROXEN 500 MG TABLET PO SCH ×2 (07:54→21:00)
[2020-11-04] MEDS: CYANOCOBALAMIN (VITAMIN B-12) 1,000 MCG TABLET PO SCH (07:54)
[2020-11-04] MEDS: PAROXETINE HCL 20 MG TABLET PO SCH ×2 (07:54→21:00)
[2020-11-04] MEDS: FAMOTIDINE 20MG TAB PO SCH ×2 (07:54→21:00)
[2020-11-04] MEDS: FLUOXETINE HCL 10 MG CAPSULE PO SCH (07:55)
[2020-11-04] MEDS: LOSARTAN 50 MG TABLET PO SCH (07:55)
[2020-11-04] MEDS: METOPROLOL TARTRATE 50 MG TAB PO SCH ×2 (07:55→20:54)
[2020-11-04] MEDS: ISOSORBIDE MONO 30MG SR TAB PO SCH (07:55)
[2020-11-04] MEDS: INSULIN HUMULIN R 100 UNIT/ML 3ML SQ SCH ×4 (08:03→20:54)
[2020-11-04 08:05] VITALS: BP 143/74
[2020-11-04] MEDS: CILOSTAZOL 100 MG TAB PO SCH ×2 (09:00→21:00)
[2020-11-04] MEDS: ASCORBIC ACID 500 MG TAB PO SCH ×2 (09:00→21:00)
[2020-11-04] MEDS: LIDOCAINE 5% TOPICAL PATCH TP SCH (09:00)
[2020-11-04] MEDS: OLANZAPINE 5 MG TAB PO SCH (21:00)
[2020-11-04] MEDS: ATORVASTATIN 20 MG TABLET PO SCH (21:00)
[2020-11-04 22:33] VITALS: BP 98/48
[2020-11-04 23:50] VITALS: BP 154/63
[2020-11-05 03:54] LABS: BASOPHILS % (AUTO) 0.5 % (0.0-5.0); EOSINOPHILS % (AUTO) 2.7 % (0.0-8.0); HEMATOCRIT 33.1 % (36-48); LYMPHOCYTES % (AUTO) 18.7 % (21.0-51.0); MEAN CORPUSCULAR HEMOGLOBIN 29.9 pg (27.0-33.0); MEAN CORPUSCULAR HGB CONC 32.6 g/dL (32.0-36.0); MEAN CORPUSCULAR VOLUME 91.7 fL (79-99); MONOCYTES % (AUTO) 8.2 % (3.0-13.0); NEUTROPHILS % (AUTO) 69.3 % (40.0-77.0); PLATELET COUNT (AUTO) 230 K/uL (130-400); RED BLOOD CELL COUNT(AUTO) 3.61 MIL/uL (4.00-5.50); RED CELL DISTRIBUTION WIDTH 13.1 % (11.0-15.5)
[2020-11-05 04:17] LABS: ALBUMIN 2.9 g/dL (3.5-5.0); BILIRUBIN,TOTAL 0.7 mg/dL (0.2-1.0); CREATININE 1.8 mg/dL (0.5-1.5); POTASSIUM 4.2 mmol/L (3.5-5.1); TOTAL PROTEIN, SERUM 6.4 g/dL (6.0-8.3)
[2020-11-05] MEDS: LABETALOL 20MG SYG IV SCH (05:54)
[2020-11-05] MEDS: INSULIN HUMULIN R 100 UNIT/ML 3ML SQ SCH ×2 (06:11→12:32)
[2020-11-05 06:18] VITALS: BP 123/47
[2020-11-05 07:42] VITALS: BP 131/47
[2020-11-05] MEDS: NAPROXEN 500 MG TABLET PO SCH (09:49)
[2020-11-05] MEDS: CYANOCOBALAMIN (VITAMIN B-12) 1,000 MCG TABLET PO SCH (09:49)
[2020-11-05] MEDS: GABAPENTIN 100 MG CAPSULE PO SCH (09:50)
[2020-11-05] MEDS: FAMOTIDINE 20MG TAB PO SCH (09:50)
[2020-11-05] MEDS: ASPIRIN 81MG CHEW TAB PO SCH (09:50)
[2020-11-05] MEDS: CILOSTAZOL 100 MG TAB PO SCH (09:51)
[2020-11-05] MEDS: LOSARTAN 50 MG TABLET PO SCH (09:51)
[2020-11-05] MEDS: ASCORBIC ACID 500 MG TAB PO SCH (09:51)
[2020-11-05] MEDS: METOPROLOL TARTRATE 50 MG TAB PO SCH (09:51)
[2020-11-05] MEDS: PAROXETINE HCL 20 MG TABLET PO SCH (09:52)
[2020-11-05] MEDS: ISOSORBIDE MONO 30MG SR TAB PO SCH (09:52)
[2020-11-05] MEDS: FLUOXETINE HCL 10 MG CAPSULE PO SCH (09:53)
[2020-11-05] MEDS: LIDOCAINE 5% TOPICAL PATCH TP SCH (09:54)
[2020-11-05 11:29] VITALS: BP 131/47
== END 2020-11-05 15:19 | DRG 981 ==
LOC: EDH 13:48 → EDHIP 19:13 → OBSVTOIN 19:13 → 4CH 21:07 → 4DH 10-24 06:25 → 4CH 10-24 07:49 → 4AH 10-30 16:09 → 4DH 11-04 15:12
PROVIDERS: ADMIT Internal Medicine; ATTEND Internal Medicine
PROC: 2W39X1Z Immobilization of Left Upper Extremity using Splint (ICD-10-PCS; 2020-10-25)
PROC: 0PSJ04Z Reposition Left Radius with Internal Fixation Device, Open Approach (ICD-10-PCS; principal; 2020-10-27 12:17)
PROC: 0PSL04Z Reposition Left Ulna with Internal Fixation Device, Open Approach (ICD-10-PCS; 2020-10-27 12:17)
DX: N39.0 Urinary tract infection, site not specified (principal); G93.41 Metabolic encephalopathy; J18.9 Pneumonia, unspecified organism; J96.91 Respiratory failure, unspecified with hypoxia; S52.202A Unspecified fracture of shaft of left ulna, initial encounter for closed fracture; S52.602A Unspecified fracture of lower end of left ulna, initial encounter for closed fracture; S52.572A Other intraarticular fracture of lower end of left radius, initial encounter for closed fracture; N17.9 Acute kidney failure, unspecified; B96.20 Unspecified Escherichia coli [E. coli] as the cause of diseases classified elsewhere; Z20.822 Contact with and (suspected) exposure to COVID-19; E11.649 Type 2 diabetes mellitus with hypoglycemia without coma; E78.5 Hyperlipidemia, unspecified; I10 Essential (primary) hypertension; I25.10 Atherosclerotic heart disease of native coronary artery without angina pectoris; W01.0XXA Fall on same level from slipping, tripping and stumbling without subsequent striking against object, initial encounter; R53.81 Other malaise; M21.331 Wrist drop, right wrist; R51.9 Headache, unspecified; M62.838 Other muscle spasm; Y92.239 Unspecified place in hospital as the place of occurrence of the external cause; M54.2 Cervicalgia; Z74.01 Bed confinement status; Z79.4 Long term (current) use of insulin; Z83.3 Family history of diabetes mellitus; Z86.73 Personal history of transient ischemic attack (TIA), and cerebral infarction without residual deficits; Z87.891 Personal history of nicotine dependence; Z90.710 Acquired absence of both cervix and uterus; Z95.1 Presence of aortocoronary bypass graft; Y93.89 Activity, other specified; Y99.8 Other external cause status
CPT/HCPCS: 36415; 70450; 70544; 70553; 71045; 72141; 73100; 73110; 73130; 80053; 81001; 82140; 82550; 82948; 83036; 84145; 84443; 84484; 85025; 85027; 85610; 85651; 85730; 86140; 86850; 86900; 86901; 87077; 87088; 87186; 87426; 87804; 87880; 93005; 93306; 93880; 97039; A4565; A9579; G0378; J0690; J0696; J1100; J1630; J1815; J2001; J2060; J2405; J2704; J2710; J3010; J3490; J7030; U0003

== ENCOUNTER 2020-11-07 00:37 | Inpatient (IN) | payer MEDICARE ==
[~2020-11-07] VITALS: Ht 142.2 cm; Wt 57.3 kg
[~2020-11-07 00:37] MED LIST changes: +ASCO500C18 PO; +CILO100T PO; +CYAN250010 PO; +FLUO10TA3 PO; +GABA-529 PO; +ISOS30TA92 PO; +LOSA50TA2 PO; +METO5 PO; +METO50TA18 PO; +NITR0.4T50 SL; -REGADENOSON 0.4 MG/5 ML PF SYG IVP SCH; +VITA400T9 PO
[2020-11-07 01:13] LABS: BASOPHILS % (AUTO) 0.4 % (0.0-5.0); EOSINOPHILS % (AUTO) 0.7 % (0.0-8.0); HEMATOCRIT 36.6 % (36-48); MEAN CORPUSCULAR HEMOGLOBIN 30.3 pg (27.0-33.0); MEAN CORPUSCULAR HGB CONC 32.5 g/dL (32.0-36.0); MEAN CORPUSCULAR VOLUME 93.1 fL (79-99); MONOCYTES % (AUTO) 7.4 % (3.0-13.0); NEUTROPHILS % (AUTO) 82.1 % (40.0-77.0); PLATELET COUNT (AUTO) 240 K/uL (130-400); RED BLOOD CELL COUNT(AUTO) 3.93 MIL/uL (4.00-5.50); RED CELL DISTRIBUTION WIDTH 13.2 % (11.0-15.5)
[2020-11-07 01:18] LABS: CREATININE 2.3 mg/dL (0.5-1.5); POTASSIUM 4.2 mmol/L (3.5-5.1)
[2020-11-07 01:21] LABS: INR 1.04 (0.85-1.15); PROTHROMBIN TIME 11.3 SEC (9.6-11.6)
[2020-11-07 01:23] LABS: PARTIAL THROMBOPLASTIN TIME 23.7 SEC (26.3-35.5)
[2020-11-07 01:25] LABS: TOTAL PROTEIN, SERUM 6.8 g/dL (6.0-8.3)
[2020-11-07 01:40] LABS: APPEARANCE,URINE Cloudy (CLEAR); BILIRUBIN,URINE Negative (NEGATIVE); COLOR,URINE Yellow (YELLOW); GLUCOSE, URINE (UA) 500 mg/dL (NEGATIVE); KETONES,URINE 15 mg/dL (NEGATIVE); LEUKOCYTE ESTERASE ,URINE Moderate (NEGATIVE); NITRATE,URINE Negative (NEGATIVE); OCCULT BLOOD,URINE Negative (NEGATIVE); PROTEIN,URINE Negative (NEGATIVE); UROBILINOGEN,URINE 0.2 mg/dL (0.2-1.0)
[2020-11-07 01:49] LABS: AMPHET/METH SCREEN,URINE NEGATIVE (NEGATIVE); BARBITURATE SCREEN, URINE NEGATIVE (NEGATIVE); BENZODIAZEPINES SCREEN,URINE NEGATIVE (NEGATIVE); CANNABINOID SCREEN,URINE NEGATIVE (NEGATIVE); COCAINE SCREEN,URINE NEGATIVE (NEGATIVE); OPIATE SCREEN,URINE NEGATIVE (NEGATIVE); PHENCYCLIDINE SCREEN,URINE NEGATIVE (NEGATIVE)
[2020-11-07] MEDS ORDERED: 0.9%NACL 1000ML 1,000 ML IV ONE ×2 (02:00→04:11)
[2020-11-07 02:15] LABS: RBC,URINE None Seen /HPF (0-1)
[2020-11-07 02:16] LABS: BACTERIA,URINE None Seen /HPF (None Seen); SQUAMOUS EPITHELIAL CELL,UR Moderate /HPF (0-2); YEAST,URINE BUDDING Many /HPF (None Seen)
[2020-11-07] MEDS: CEFTRIAXONE 1G VIAL IV SCH (04:30)
[2020-11-07] MEDS ORDERED: DiphenhydrAMINE HCL 50 MG/ML VIAL IV PRN (04:30)
[2020-11-07] MEDS ORDERED: NITROGLYCERIN 0.4 MG SL TAB SL PRN (04:30)
[2020-11-07] MEDS ORDERED: ACETAMINOPHEN 325 MG TAB PO PRN ×2 (04:30)
[2020-11-07] MEDS ORDERED: LACTATED RINGERS 1000ML 1,000 ML IV SCH (04:30)
[2020-11-07] MEDS ORDERED: MAG/ALUM/SIMETH 30 ML UDCUP PO PRN (04:30)
[2020-11-07] MEDS ORDERED: ZOLPIDEM TARTRATE 5 MG TAB PO PRN (04:30)
[2020-11-07] MEDS ORDERED: ONDANSETRON 4MG INJ IV PRN (04:30)
[2020-11-07] MEDS ORDERED: GUAIFENESIN-DM 200/20 MG 10 ML PO PRN (04:30)
[2020-11-07] MEDS ORDERED: DIPHENHYDRAMINE HCL 25 MG CAPSULE PO PRN (04:30)
[2020-11-07] MEDS ORDERED: CEFTRIAXONE 1G VIAL ONE (06:01)
[2020-11-07 08:45] VITALS: BP 133/51
[2020-11-07] MEDS ORDERED: ENOXAPARIN SODIUM 40 MG/0.4 ML SYRINGE SQ SCH (09:00)
[2020-11-07] MEDS: ENOXAPARIN SODIUM 40 MG/0.4 ML SYRINGE SQ SCH (11:09)
[2020-11-07 12:06] VITALS: BP 111/63
[2020-11-07 16:07] VITALS: BP 123/74
[2020-11-07 20:00] VITALS: BP 178/70
[2020-11-07] MEDS ORDERED: LABETALOL 20MG SYG IV PRN (22:15)
[2020-11-07 23:32] VITALS: BP 133/62
[2020-11-08] MEDS: CEFTRIAXONE 1G VIAL IV SCH (03:28)
[2020-11-08 04:00] VITALS: BP 169/54
[2020-11-08 07:39] VITALS: BP 137/78
[2020-11-08 07:58] LABS: BASOPHILS % (AUTO) 0.4 % (0.0-5.0); EOSINOPHILS % (AUTO) 1.9 % (0.0-8.0); HEMATOCRIT 36.4 % (36-48); LYMPHOCYTES % (AUTO) 14.1 % (21.0-51.0); MEAN CORPUSCULAR HEMOGLOBIN 29.9 pg (27.0-33.0); MEAN CORPUSCULAR VOLUME 90.5 fL (79-99); MONOCYTES % (AUTO) 6.3 % (3.0-13.0); NEUTROPHILS % (AUTO) 76.9 % (40.0-77.0); PLATELET COUNT (AUTO) 221 K/uL (130-400); RED BLOOD CELL COUNT(AUTO) 4.02 MIL/uL (4.00-5.50); RED CELL DISTRIBUTION WIDTH 12.8 % (11.0-15.5); WHITE BLOOD COUNT (AUTO) 9.2 K/uL (4.8-10.8)
[2020-11-08 08:07] LABS: CREATININE 1.1 mg/dL (0.5-1.5); POTASSIUM 4.5 mmol/L (3.5-5.1)
[2020-11-08] MEDS ORDERED: GABAPENTIN 100 MG CAPSULE PO SCH (09:00)
[2020-11-08] MEDS ORDERED: LOSARTAN 50 MG TABLET PO SCH (09:00)
[2020-11-08] MEDS ORDERED: CILOSTAZOL 100 MG TAB PO SCH (09:00)
[2020-11-08] MEDS ORDERED: METOPROLOL TARTRATE 50 MG TAB PO SCH (09:00)
[2020-11-08] MEDS: ENOXAPARIN SODIUM 40 MG/0.4 ML SYRINGE SQ SCH (10:16)
[2020-11-08] MEDS ORDERED: FLUOXETINE HCL 10 MG CAPSULE PO SCH (11:01)
[2020-11-08 11:16] VITALS: BP 106/60
[2020-11-08] MEDS ORDERED: FLUCONAZOLE 100 MG TAB PO SCH (15:10)
[2020-11-08 16:28] VITALS: BP 146/51
== END 2020-11-08 20:45 | DRG 92 ==
LOC: EDH 00:37 → EDHIP 04:30 → OBSVTOIN 04:30 → 3DH 08:34
PROVIDERS: ADMIT Family Medicine; ATTEND Family Medicine
DX: G92 Toxic encephalopathy (principal); B37.49 Other urogenital candidiasis; E78.5 Hyperlipidemia, unspecified; I10 Essential (primary) hypertension; E11.9 Type 2 diabetes mellitus without complications; Z20.822 Contact with and (suspected) exposure to COVID-19; Z82.49 Family history of ischemic heart disease and other diseases of the circulatory system; Z83.3 Family history of diabetes mellitus; Z79.899 Other long term (current) drug therapy; Z87.440 Personal history of urinary (tract) infections; Z91.81 History of falling; Z87.828 Personal history of other (healed) physical injury and trauma; E86.0 Dehydration
CPT/HCPCS: 36415; 70450; 71045; 80048; 80053; 80305; 81001; 82948; 83605; 84484; 85025; 85610; 85730; 87088; 87426; 93005; G0378; J0696; J1650; J7030; J7120; U0003

== ENCOUNTER 2021-03-28 04:31 | Emergency (ER) | payer MEDICARE ==
[~2021-03-28] VITALS: Ht 142.2 cm; Wt 56.2 kg
[2021-03-28 04:33] VITALS: BP 209/66
[2021-03-28 05:39] LABS: APPEARANCE,URINE Clear (CLEAR); BILIRUBIN,URINE Negative (NEGATIVE); COLOR,URINE Yellow (YELLOW); GLUCOSE, URINE (UA) Negative (NEGATIVE); KETONES,URINE Negative (NEGATIVE); LEUKOCYTE ESTERASE ,URINE Negative (NEGATIVE); NITRATE,URINE Negative (NEGATIVE); OCCULT BLOOD,URINE Negative (NEGATIVE); PH,URINE 5.5 (5.0-8.0); PROTEIN,URINE Negative (NEGATIVE); UROBILINOGEN,URINE 0.2 mg/dL (0.2-1.0)
[2021-03-28 05:51] VITALS: BP 174/78
[2021-03-28 06:29] LABS: BASOPHILS % (AUTO) 0.3 % (0.0-5.0); HEMATOCRIT 43.5 % (36-48); LYMPHOCYTES % (AUTO) 25.4 % (21.0-51.0); MEAN CORPUSCULAR HEMOGLOBIN 28.6 pg (27.0-33.0); MEAN CORPUSCULAR VOLUME 89.5 fL (79-99); MONOCYTES % (AUTO) 9.8 % (3.0-13.0); NEUTROPHILS % (AUTO) 62.3 % (40.0-77.0); PLATELET COUNT (AUTO) 184 K/uL (130-400); RED BLOOD CELL COUNT(AUTO) 4.86 MIL/uL (4.00-5.50); RED CELL DISTRIBUTION WIDTH 13.4 % (11.0-15.5)
[2021-03-28 06:50] LABS: ALANINE AMINOTRANSFERASE 116 U/L (12-78); ALBUMIN 3.5 g/dL (3.5-5.0); ASPARTATE AMINOTRANSFERASE 191 U/L (10-37); BILIRUBIN,TOTAL 0.4 mg/dL (0.2-1.0); CARBON DIOXIDE 34 mmol/L (21-32); CHLORIDE 108 mmol/L (101-111); CREATINE KINASE, TOTAL 71 U/L (21-232); CREATININE 1.2 mg/dL (0.5-1.5); GLOMERULAR FILTR. RATE CALC 46 mL/min (>60); GLUCOSE,RANDOM 101 mg/dL (70-105); MYOGLOBIN 124 ng/mL (10-92); POTASSIUM 5.8 mmol/L (3.5-5.1); SODIUM SERUM 145 mmol/L (136-145); TOTAL PROTEIN, SERUM 7.1 g/dL (6.0-8.3); TROPONIN I < 0.04 ng/mL (0.00-0.06); UREA NITROGEN, BLOOD 22 mg/dL (7-18)
[2021-03-28 08:03] VITALS: BP 151/48
[2021-03-28] MEDS ORDERED: PHARMACY COMMUNICATION MISC STA (09:08)
[2021-03-28] MEDS ORDERED: KAYEXALATE 15GM/60ML PO SCH (09:30)
[2021-03-28 09:56] VITALS: BP 176/61
== END 2021-03-28 09:57 ==
LOC: EDH 04:40
DX: T50.901A Poisoning by unspecified drugs, medicaments and biological substances, accidental (unintentional), initial encounter (principal); R41.82 Altered mental status, unspecified; R51.9 Headache, unspecified; M54.2 Cervicalgia; Z95.0 Presence of cardiac pacemaker; Z79.899 Other long term (current) drug therapy; Y92.89 Other specified places as the place of occurrence of the external cause
CPT/HCPCS: 36415; 70450; 72125; 80053; 81003; 82550; 83874; 84484; 85025; 93005

== ENCOUNTER 2023-02-03 13:04 | Emergency (ER) | payer MEDICARE ==
[~2023-02-03] VITALS: Ht 157.5 cm; Wt 60.3 kg
[~2023-02-03 13:04] MED LIST changes: -CILO100T PO; +CILO100T3 PO; -FLUO10TA3 PO; +FLUO10TA35 PO; +LOSA-418 PO; -LOSA50TA2 PO
[2023-02-03 13:32] LABS: BASOPHILS % (AUTO) 0.4 % (0.0-5.0); EOSINOPHILS % (AUTO) 1.2 % (0.0-8.0); HEMATOCRIT 36.5 % (36-48); LYMPHOCYTES % (AUTO) 17.6 % (21.0-51.0); MEAN CORPUSCULAR HEMOGLOBIN 28.2 pg (27.0-33.0); MEAN CORPUSCULAR HGB CONC 32.1 g/dL (32.0-36.0); MONOCYTES % (AUTO) 7.2 % (3.0-13.0); PLATELET COUNT (AUTO) 159 K/uL (130-400); RED BLOOD CELL COUNT(AUTO) 4.15 MIL/uL (4.00-5.50); RED CELL DISTRIBUTION WIDTH 13.2 % (11.0-15.5); WHITE BLOOD COUNT (AUTO) 4.9 K/uL (4.8-10.8)
[2023-02-03 13:43] LABS: POTASSIUM 3.9 mmol/L (3.5-5.1)
[2023-02-03 13:47] LABS: ALBUMIN 3.5 g/dL (3.5-5.0); MAGNESIUM 1.8 mg/dL (1.80-2.40); TOTAL PROTEIN, SERUM 6.4 g/dL (6.0-8.3)
[2023-02-03 14:06] LABS: B-TYPE NATRIURETIC PEPTIDE 424 pg/mL (0-100)
[2023-02-03] MEDS ORDERED: LABETALOL 20MG VIAL IV ONE (14:30)
[2023-02-03] MEDS ORDERED: PANTOPRAZOLE 40 MG/VIAL IVP ONE (14:30)
[2023-02-03] MEDS ORDERED: ONDANSETRON 4MG INJ IVP ONE (14:30)
[2023-02-03 14:33] LABS: APPEARANCE,URINE CLEAR (CLEAR); BILIRUBIN,URINE NEGATIVE (NEGATIVE); COLOR,URINE LIGHT-YELLOW (YELLOW); GLUCOSE, URINE (UA) NEGATIVE (NEGATIVE); KETONES,URINE 20 mg/dL (NEGATIVE); LEUKOCYTE ESTERASE ,URINE NEGATIVE Leu/uL (NEGATIVE); NITRATE,URINE NEGATIVE (NEGATIVE); PROTEIN,URINE 20 mg/dL (NEGATIVE); UROBILINOGEN,URINE 0.2 mg/dL (0.2-1.0)
[2023-02-03 14:45] LABS: BACTERIA,URINE FEW /HPF (None Seen); MUCUS,URINE RARE LPF (None Seen); RBC,URINE 0-1 /HPF (0-1); SQUAMOUS EPITHELIAL CELL,UR RARE /HPF (0-2); WBC,URINE 0-1 /HPF (0-1)
[2023-02-03] MEDS ORDERED: FUROSEMIDE 20MG VIAL IV ONE (16:00)
[2023-02-03] MEDS ORDERED: ACETAMINOPHEN 325 MG TAB PO ONE (16:00)
[2023-02-03] MEDS ORDERED: 0.9% NACL 250ML 250 ML IV ONE (16:00)
[2023-02-03 16:45] VITALS: BP 165/54
== END 2023-02-03 18:36 | disposition home or self-care (01) ==
LOC: EDH 13:04
DX: I11.0 Hypertensive heart disease with heart failure (principal); I50.9 Heart failure, unspecified; E11.9 Type 2 diabetes mellitus without complications; E78.00 Pure hypercholesterolemia, unspecified; F03.93 Unspecified dementia, unspecified severity, with mood disturbance; K21.9 Gastro-esophageal reflux disease without esophagitis; Z79.899 Other long term (current) drug therapy; Z95.1 Presence of aortocoronary bypass graft
CPT/HCPCS: 99285; 96374; 96375; 71045; 82550; 83735; 84484; 80053; 83880; 85025; 81001; 36415; 93005; J1940; C9113; J7050